=== PATIENT | female | born 2000 | race American Indian/Alaskan Native ===

== ENCOUNTER 2020-08-07 09:10 | Emergency (ER) | payer SELFPAY ==
[2020-08-07] MEDS ORDERED: LIDOCAINE VISCOUS 2% 15 ML ORAL LIQD PO ONE (09:49)
[2020-08-07] MEDS ORDERED: AZITHROMYCIN 250 MG TAB PO ONE (09:49)
[2020-08-07] MEDS ORDERED: ALUM-MAG HYDROXIDE-SIMETHICONE 200-200-20MG/5ML ORAL LIQD 30 ML PO ONE (09:49)
[2020-08-07] MEDS ORDERED: ONDANSETRON 4 MG ODT TAB PO ONE (09:49)
[2020-08-07] MEDS ORDERED: LIDOCAINE-MPF (1%) 10 MG/1 ML VIAL 5 ML INFILTRATI ONE (09:50)
--- NOTE | 2020-08-07 09:51 | Emergency Department Report ---
ED General Adult HPI - General Chief complaint: Abdominal Pain Stated complaint: GENERAL ILLNESS Time Seen by Provider: 08/07/20 09:37 Source: patient Mode of arrival: Ambulatory Limitations: No Limitations - History of Present Illness Initial comments: Patient is a 20-year-old female who presents with epigastric abdominal pain and vaginal discharge after she had sexual intercourse. She denies having any vaginal bleeding. She says the epigastric pain is a 5 out of 10 is a burning type of pain she states that she was try to eat something to make the pain better nothing makes it worse. Patient denies any fevers or chills any shortness of breath. - Related Data Allergies Allergy/AdvReac Type Severity Reaction Status Date / Time sulfamethoxazole Allergy Hives Verified 08/07/20 09:13 [From Bactrim] trimethoprim [From Bactrim] Allergy Hives Verified 08/07/20 09:13 ED Review of Systems ROS: Stated complaint: GENERAL ILLNESS Other details as noted in HPI Constitutional: denies: chills, fever Eyes: denies: eye pain, eye discharge, vision change ENT: denies: ear pain, throat pain Respiratory: denies: cough, shortness of breath, wheezing Cardiovascular: denies: chest pain, palpitations Endocrine: no symptoms reported Gastrointestinal: abdominal pain, nausea, vomiting. denies: diarrhea Genitourinary: discharge. denies: urgency, dysuria Musculoskeletal: denies: back pain, joint swelling, arthralgia Skin: denies: rash, lesions Neurological: denies: headache, weakness, paresthesias Psychiatric: denies: anxiety, depression Hematological/Lymphatic: denies: easy bleeding, easy bruising ED Past Medical Hx - Past Medical History Previous Medical History?: Yes Hx GERD: Yes Hx Asthma: Yes - Surgical History Hx Cholecystectomy: Yes - Social History Smoking Status: Current Every Day Smoker Substance Use Type: None ED Physical Exam - General Limitations: No Limitations General appearance: alert, in no apparent distress - Head Head exam: Present: atraumatic, normocephalic - Eye Eye exam: Present: normal appearance - ENT ENT exam: Present: mucous membranes moist - Neck Neck exam: Present: normal inspection - Respiratory Respiratory exam: Present: normal lung sounds bilaterally. Absent: respiratory distress - Cardiovascular Cardiovascular Exam: Present: regular rate, normal rhythm. Absent: systolic murmur, diastolic murmur, rubs, gallop - GI/Abdominal GI/Abdominal exam: Present: soft, normal bowel sounds - Extremities Exam Extremities exam: Present: normal inspection - Back Exam Back exam: Present: normal inspection - Neurological Exam Neurological exam: Present: alert, oriented X3 - Psychiatric Psychiatric exam: Present: normal affect, normal mood - Skin Skin exam: Present: warm, dry, intact, normal color. Absent: rash ED Course Vital Signs 08/07/20 09:16 Temperature 99.2 F Pulse Rate 79 Respiratory 18 Rate Blood Pressure 139/61 [Right] O2 Sat by Pulse 98 Oximetry ED Medical Decision Making - Medical Decision Making Cdx: UTI ddx: Gonorrhea infection, pregancy I will give antibiotics, urinalysis, urine and will discharge the patient. Critical care attestation.: If time is entered above; I have spent that time in minutes in the direct care of this critically ill patient, excluding procedure time. ED Disposition Clinical Impression: Vaginal discharge, Epigastric abdominal pain Disposition: DC- TO HOME OR SELFCARE Is pt being admited?: No Does the pt Need Aspirin: No Condition: Stable Instructions: Dysuria (ED) Referrals: PRIMARY CARE, [Primary Care Provider] - 3-5 Days
[2020-08-07] MEDS ORDERED: cloNIDine 0.1 MG TAB PO ONE (10:44)
[2020-08-07 11:38] LABS: Bilirubin,Urine NEG (Negative); Blood,Urine NEG (Negative); Color,Urine Straw (Yellow); Protein,Urine <15 mg/dL mg/dL (Negative); Urobilinogen,Urine < 2.0 mg/dL (<2.0)
[2020-08-07 11:44] LABS: RBC,Urine < 1.0 /HPF (0.0-6.0)
[2020-08-07 12:02] VITALS: BP 128/55
== END 2020-08-07 12:00 | disposition home or self-care (01) ==
LOC: ED 09:10
DX: R10.13 Epigastric pain (principal); N89.8 Other specified noninflammatory disorders of vagina
CPT/HCPCS: 81001; 96372; 99283; J0696; Q0162

== ENCOUNTER 2020-09-17 12:24 | Emergency (ER) | payer SELFPAY | END 2020-09-17 12:43 | disposition left against medical advice (07) | LOC: ED 12:24 | DX: N89.8 Other specified noninflammatory disorders of vagina (principal); Z53.21 Procedure and treatment not carried out due to patient leaving prior to being seen by health care provider ==